=== PATIENT | male | born 1965 | race Caucasian/White ===

== ENCOUNTER → 2020-11-18 13:22 | Outpatient (BNVA) | payer MEDICARE, OTHER, SELFPAY | PROVIDERS: PCP Internal Medicine; Visit Provider Internal Medicine | DX: I48.92 Unspecified atrial flutter (principal); I10 Essential (primary) hypertension; I36.1 Nonrheumatic tricuspid (valve) insufficiency; M79.89 Other specified soft tissue disorders; G47.33 Obstructive sleep apnea (adult) (pediatric); Z79.899 Other long term (current) drug therapy; Z99.89 Dependence on other enabling machines and devices | CPT/HCPCS: 93005; 99212 ==

== ENCOUNTER → 2021-10-18 15:01 | Outpatient (REF) | payer MEDICARE, MEDICAID, SELFPAY ==
--- NOTE | 2021-10-18 15:05 | CA_ITS ---
Transthoracic Echocardiogram Patient (Last, First, Middle): Demetrius Gandhi, Gender: Male Date of : 1965 Age: 56 Procedure Date: 10/18/2021 Procedure Type: Transthoracic Echocardiogram Location: OP Height: 180.34 cm Weight: 149.69 kg BSA: 2.61 m2 Heart Rate: bpm BP: 132 / 65 mmHg Program Associate: JONATHAN Referring MD: Domingo Rico MD Block Splitter Operator: Scotty Rincon MD Symptoms: I36.1 - Nonrheumatic tricuspid (valve) insufficiency Study Quality: Fair ECG Rhythm: Sinus Conclusions: - 1. Normal LV systolic function with impaired relaxation filling pattern 2. Mild tricuspid regurgitation 3. Mildly elevated right ventricular systolic pressure 4. No gross pericardial effusion Findings Left Ventricle Normal left ventricular size, thickness, and systolic function. The visually estimated ejection fraction is between 55-60%. Spectral Doppler is indicative of an impaired relaxation filling pattern. E/E prime ratio is between 8 and 15 consistent with indeterminate filling pressures. Right Ventricle Normal right ventricular cavity size and systolic function. Atria The left atrium is mildly dilated. Interatrial shunt cannot be excluded. The right atrium was not well visualized. Aortic Valve The aortic valve structure and function is likely normal. There is no aortic valve stenosis. There is no aortic valve regurgitation. Mitral Valve Normal mitral valve structure and function. There is trace mitral valve regurgitation. There is no mitral valve stenosis. Pulmonic Valve The pulmonic valve was not well visualized. Tricuspid Valve Likely normal tricuspid valve structure and function. There is mild tricuspid valve regurgitation. The right ventricular systolic pressure is 43 mmHg. Mild pulmonary hypertension is present. Great Vessels All visible segments of the aorta are normal in size. The pulmonary artery was not well visualized. Venous The inferior vena cava is normal in size. Pericardium/Pleural There is no evidence of pericardial effusion. Prior Study Comparison Changes noted compared to prior study dated: 08/19/2019. RV systolic pressure is mildly elevated Measurements 2D Linear Measurements IVSd: 1.01 0.6-0.9/0.6-1.0 cm LVIDd: 5.74 3.9-5.3/4.2-5.9 cm LVIDd Index: 2.20 2.4-3.2/2.2-3.1 cm/m2 LVIDs: 3.95 2.0-3.6 cm LVPWd: 1.06 0.7-1.1 cm Ao Root: 3.90 2.1-3.5 cm LA Diam: 4.70 2.7-3.8/3.0-4.0 cm LAIDs Index: 1.80 1.5-2.3 cm/m2 LV Mass: 298.75 67-162/88-224 g LV Mass Index: 114.46 43-95/49-115 g/m2 LVOT Diam: 2.20 3.0+(-)1.3 cm 2D Systolic Function EF 4C: 58.70 >55% EF 2C: 59.10 >55% EF BiP: 57.90 >55% Mitral Valve MV Pk E: 1.00 MV PK A: 1.00 MV Decel Time: 248.00 E/A: 1.00 E'Lateral: 12.40 E'Medial: 7.29 E/E' Med: 13.70 E/E' Lat: 8.00 PHT: 73.00 MVA PHT: 3.01 Decel [place]: 4.03 Aortic Valve AoV Pk Pierre: 1.74 AoV Mn Pierre: 1.26 AoV VTI: 0.41 AoV Pk Grad: 12.00 Aov Mn Grad: 7.00 NIKITA Cont.VTI: 2.75 LVOT LVOT Pk Pierre: 1.17 LVOT Mn Pierre: 0.81 LVOT VTI: 0.30 LVOT Pk Grad: 5.00 LVOT Mn Grad: 3.00 LVOT Diam: 2.20 LVOT Area: 3.80 Diastolic Function MV Pk E: 1.00 MV Pk A: 1.00 E/A: 1.00 E'Medial: 7.29 E/E' Med: 13.70 E' Laterial: 12.40 E/E' Lat: 8.00 Right Ventricle TAPSE (mm): 30.00 TVS' Pierre: 15.00 Tricuspid Valve TR Pk Pierre: 3.15 TR Pk Grad: 40.00 RA Press: 3.00 RVSP: 43.00 Great Vessels Aorta Ao Root-2D: 3.90 2.0-3.7 cm Ao Asc: 3.40 2.1-3.4 cm Ao Arch: 3.40 Updated in Other Vendor System with Status of Final Scotty Rincon MD electronically signed on 10/19/2021 12:15:52 PM with status of Final
== END ==
LOC: HO.CARD 15:01
PROVIDERS: Visit Provider Internal Medicine
DX: I36.1 Nonrheumatic tricuspid (valve) insufficiency (principal)
CPT/HCPCS: 93306

== ENCOUNTER → 2021-11-21 13:25 | Outpatient (BNVA) | payer MEDICARE, MEDICAID, SELFPAY | PROVIDERS: PCP Internal Medicine; Referring Provider Internal Medicine; Visit Provider Internal Medicine | DX: I48.92 Unspecified atrial flutter (principal); I36.1 Nonrheumatic tricuspid (valve) insufficiency; I27.20 Pulmonary hypertension, unspecified; I10 Essential (primary) hypertension; E66.01 Morbid (severe) obesity due to excess calories; M79.89 Other specified soft tissue disorders; G47.33 Obstructive sleep apnea (adult) (pediatric); Z99.89 Dependence on other enabling machines and devices; Z68.42 Body mass index [BMI] 45.0-49.9, adult | CPT/HCPCS: 93005; 99212 ==

== ENCOUNTER → 2022-11-20 11:15 | Outpatient (BNVA) | payer MEDICARE, SELFPAY | PROVIDERS: PCP Internal Medicine; Referring Provider Internal Medicine; Visit Provider Internal Medicine | DX: I48.92 Unspecified atrial flutter (principal); I10 Essential (primary) hypertension; I27.20 Pulmonary hypertension, unspecified; G47.33 Obstructive sleep apnea (adult) (pediatric); M79.89 Other specified soft tissue disorders; E66.01 Morbid (severe) obesity due to excess calories; Z68.42 Body mass index [BMI] 45.0-49.9, adult; Z79.899 Other long term (current) drug therapy; Z99.89 Dependence on other enabling machines and devices | CPT/HCPCS: 93005; 99212 ==

== ENCOUNTER 2024-02-11 13:23 | Outpatient (AMB) | payer MEDICARE, SELFPAY ==
--- NOTE | 2024-02-11 13:25 | A.OFFVIS_ITS ---
Vital Signs 02/11/24 13:26 Height 5 ft 11 in Weight 337 lb 4.916 oz BMI 47.0 BP 150/70 H Blood Pressure Location Lt brachial Position Sitting Pulse 97 Pulse Source Monitor Pulse Oximetry (%) 98 Oxygen Delivery Method Room Air Intake Visit Reasons: hip surgery 03/07 Allergies No Known Allergies [No Known Allergies*] Allergy (Verified 11/20/22 11:22) Medication List - Last Reconciled 02/11/24 by Domingo Rico MD amlodipine 10 mg PO DAILY baclofen 10 mg PO BID furosemide 20 mg PO DAILY gabapentin 300 mg PO multivitamin 1 tab PO DAILY omeprazole 20 mg PO DAILY oxycodone 5 mg PO TID pravastatin 40 mg PO DAILY HPI Comments Details: Demetrius returns for follow-up regarding atrial flutter. Due to recurrent episodes of flutter, he had atrial flutter ablation. He has been very stable in that regard. No recurrences. Otherwise, he plans to go for hip surgery in the near future. He does not have any clear-cut cardiac symptoms but he has not moving much either because of hip pains. Comes with a walker. In the past, he was on a significant dose of beta-blockers, but he states that he was admitted for medical issues when the last year and that time it was stopped due to low blood pressure. However, blood pressure is again high. [facility] Medical History (Updated 02/11/24 @ 13:57 by Domingo Rico MD) JUANJO on CPAP Tricuspid valve regurgitation, nonrheumatic Essential hypertension Paroxysmal atrial flutter Surgical History History of cardiac radiofrequency ablation (~09/17/17) Family History Father HTN (hypertension) Mother Heart disease Social History (Updated 11/21/21 @ 13:35 by DASHAWN Garcia) Patient Tobacco Use Status: Former Tobacco user Quit Date: 20 yrs ago Review of Systems Const Denies weakness ENT Denies dizziness Card Denies chest pain, Denies chest pain with activity, Denies syncope, Denies rapid heart rate, Denies pedal edema, Denies edema, Denies leg edema, Denies lightheadedness, Denies palpitations, Denies dyspnea, Denies dyspnea on exertion and Denies orthopnea Resp Denies cough, Denies dyspnea and Denies dyspnea on exertion GI Denies hematochezia and Denies change in stool character Musc Denies abnormal gait, Denies muscle cramps, Denies muscle weakness, Denies numbness, Denies radiating pain into limb and Denies tingling Neuro Denies abnormal gait, Denies dizziness, Denies syncope, Denies numbness, Denies tingling and Denies weakness Endo Denies palpitations Physical Exam Vital Signs: Last Vital Signs Pulse 97 02/11/24 13:26 BP 150/70 H 02/11/24 13:26 Pulse Ox 98 02/11/24 13:26 Oxygen Delivery Method Room Air 02/11/24 13:26 BMI result Body Mass Index 47.0 Const General: comfortable and no acute distress Orientation/consciousness: patient oriented x3 HEENT Other: Unremarkable Head: Yes normal to inspection Neck Neck: Yes normal visual inspection Chest Chest palpation & inspection: normal inspection of the chest Resp Auscultation: clear to auscultation bilaterally Cardio Palpation: normal PMI Heart sounds: S1 normal heart sound present, S2 normal heart sound present, no gallops, no murmurs and no rubs GI Palpation (GI): Soft to palpation Back/Spine/Pelvis Other: unremarkable Skin General skin exam: no rashes or lesions noted Neuro General: patient oriented x3 Extrem General: Yes normal to inspection Psych Mental Status: mental status grossly normal Office Procedures EKG Details: EKG with sinus rhythm at 97/Min; can not exclude old inferior infarct; nonspecific changes in the anterolateral leads; [place] [address]-[id number], Complete Assessment & Plan Assessment & Plan (1) Preoperative cardiovascular examination: Code(s): Z01.810 - Encounter for preprocedural cardiovascular examination Category: Medical Plan: Some inferior changes in the EKG but could also be nonspecific. Recommend echocardiogram and stress test. Unlikely to exercise on treadmill and hence get pharmacological stress test with Lexiscan. (2) Paroxysmal atrial flutter: Code(s): I48.92 - Unspecified atrial flutter Category: Medical Plan: Status post ablation several years ago. Stable. Resume beta-blockers. (3) Essential hypertension: Code(s): I10 - Essential (primary) hypertension Category: Medical Plan: On amlodipine. In the past, was also on lisinopril but not anymore. Otherwise, was on metoprolol succinate ER 200 mg daily per our records but again not taking anymore. We can resume beta-blockers, probably smaller dose for now. (4) JUANJO on CPAP: Code(s): G47.33 - Obstructive sleep apnea (adult) (pediatric); Z99.89 - Dependence on other enabling machines and devices Category: Medical Plan: Continue regular CPAP. Orders: Orders NM cardiolite stress test Today R07.2 - Precordial pain CA echo transthoracic complete Today I25.10 - Atherosclerotic heart disease of [place] coronary artery without angina pectoris CA lexiscan stress w miley Today I20.9 - Angina pectoris, unspecified Medications: New metoprolol succinate ER (Toprol XL) 100 mg PO DAILY 90 tabs 3RF Coding Level of Care Code Est Pt Level 4 (05869) Diagnoses Preoperative cardiovascular examination Z01.810 Paroxysmal atrial flutter I48.92 Essential hypertension I10 JUANJO on CPAP G47.33; Z99.89 CPT Codes EKG - CPT: 77010-[id number], Complete ([id number])
[2024-02-11 13:26] VITALS: BP 150/70; PULSE 97; O2SAT 98; BMI 47.0
== END 2024-02-11 14:02 | disposition home or self-care (01) ==
PROVIDERS: PCP Internal Medicine; Visit Provider Internal Medicine
DX: Z01.810 Encounter for preprocedural cardiovascular examination (principal); I48.92 Unspecified atrial flutter; I10 Essential (primary) hypertension; G47.33 Obstructive sleep apnea (adult) (pediatric); Z99.89 Dependence on other enabling machines and devices
CPT/HCPCS: 93010; 99214

== ENCOUNTER → 2024-02-11 13:23 | Outpatient (BNVA) | payer MEDICARE, SELFPAY | PROVIDERS: PCP Internal Medicine; Visit Provider Internal Medicine | DX: Z01.810 Encounter for preprocedural cardiovascular examination (principal); I10 Essential (primary) hypertension; G47.33 Obstructive sleep apnea (adult) (pediatric); R07.2 Precordial pain; I25.119 Atherosclerotic heart disease of native coronary artery with unspecified angina pectoris; I48.92 Unspecified atrial flutter; Z99.89 Dependence on other enabling machines and devices | CPT/HCPCS: 93005; 99212 ==

== ENCOUNTER → 2024-04-07 08:56 | Outpatient (REF) | payer MEDICARE, SELFPAY ==
--- NOTE | ~2024-04-07 | NM_ITS ---
Lexiscan Myocardial perfusion study Indication: Preoperative cardiovascular evaluation Technique: The patient was brought in for a Lexiscan perfusion study on 04/07/2024 and was injected 0.4 mg of Lexiscan intravenously. Within a minute of this injection 45 mCi of sestamibi was given intravenously. Images were obtained using the SPECT gamma camera interlaced with the gating device. Images were obtained in supine position. Resting perfusion study was performed on 04/08/2024. Patient was administered 45 mCi of sestamibi intravenously at rest. Images were then obtained in supine position. Images were processed with the software and compared side to side in short axis, horizontal long axis and vertical long axis views. Total DLP 176mGy-cm. Findings: Raw acquisition reviewed. The stress perfusion study showed diminished tracer uptake along the inferior wall. With CT attenuation correction, there is improvement suggestive of possibly diaphragmatic attenuation artifact. The gated study shows normal LV systolic function with calculated LVEF of 58%. LV cavity is normal in size. The gated study shows somewhat diminished inferior wall contractility. Resting study shows diminished tracer uptake along the inferior wall. There is again improvement with CT attenuation correction suggestive of components of possibly diaphragmatic attenuation artifact. Gating at rest reveals reduced inferior wall contractility with ejection fraction at 53%. The findings are consistent with fixed inferior wall perfusion defect which could indicate a prior infarct. Superimposed diaphragmatic attenuation artifact. NH/NH cardiolite stress test Impression: 1. Myocardial perfusion imaging study shows possible non-transmural infarct inferior wall. Cannot exclude components of diaphragmatic attenuation artifact. 2. Gated LVEF is 58% during stress and 53% during rest. 3. Transient ischemic dilatation not present. EKG component of the test reported separately.
--- NOTE | 2024-04-07 09:00 | CA_ITS ---
Acquisition Time: 2024-04-07 10:01:45 Total Exercise Time: 00:02:00 Test Indications: Abnormal ECG Medications: AMLODIPINE BACLOFEN FUROSEMIDE GABAPENTIN OMEPRAZOLE PRAVASTATIN OXYCODONE Protocol: LEXISCAN Max HR: 095 BPM 58% of Pred: 163 BPM Max BP: 152/066 mmHG Max Work Load: 1.0 METS Pharmaoclogical stress test with Lexiscan injection while sitting and kicking his leg, without anginal symptoms, with isolated PVCs, with normotensive response to injection, with nondiagnoisitic EKGs. Nuclear images pending. Test reviewed with Dr. Rincon Referred By: Domingo Rico Overread By: Cris Cloud
--- NOTE | 2024-04-07 09:00 | CA_ITS ---
Transthoracic Echocardiogram Patient (Last, First, Middle): Demetrius Gandhi, Gender: Male Date of : 1965 Age: 59 Procedure Date: 04/07/2024 Procedure Type: Transthoracic Echocardiogram Location: OP Height: 180.34 cm Weight: 146.97 kg BSA: 2.59 m2 Heart Rate: bpm BP: 144 / 70 mmHg Auto Hauler: JONATHAN Referring MD: Domingo Rico MD Radiology Receptionist: Scotty Rincon MD Symptoms: I25.10 - Atherosclerotic heart disease of [place] coronary artery without... Study Quality: Fair ECG Rhythm: Sinus Conclusions: - 1. Normal LV ejection fraction of 55-60% with impaired relaxation filling pattern 2. Normal cardiac valvular Doppler 3. Moderately elevated right ventricular systolic pressure 4. Upper limits of normal ascending aortic size 5. No pericardial effusion Findings Left Ventricle Normal left ventricular size, thickness, and systolic function. The visually estimated ejection fraction is between 55-60%. Spectral Doppler is indicative of an impaired relaxation filling pattern. E/E prime ratio is between 8 and 15 consistent with indeterminate filling pressures. Wall Motion Rest Echo Findings The basal inferior and mid inferior segments are hypokinetic. All other scored wall segments showed normal motion. Right Ventricle Normal right ventricular cavity size and systolic function. Atria The left atrium is moderately dilated. There is no evidence of interatrial shunt. The right atrium is normal in size. Aortic Valve Normal aortic valve structure and function. There is no aortic valve stenosis. There is no aortic valve regurgitation. Mitral Valve Normal mitral valve structure and function. There is trace mitral valve regurgitation. There is no mitral valve stenosis. Pulmonic Valve The pulmonic valve is likely normal. There is trace pulmonic valve regurgitation. Tricuspid Valve Normal right atrial pressure. Moderate pulmonary hypertension is present. Great Vessels The pulmonary artery was not well visualized. There is no dilatation of the ascending aorta measuring 3.50 cm. Venous The inferior vena cava is normal in size and collapses greater than 50% with inspiration. Pericardium/Pleural There is no evidence of pericardial effusion. Measurements 2D Linear Measurements IVSd: 1.02 0.6-0.9/0.6-1.0 cm LVIDd: 5.85 3.9-5.3/4.2-5.9 cm LVIDd Index: 2.26 2.4-3.2/2.2-3.1 cm/m2 LVIDs: 4.02 2.0-3.6 cm LVPWd: 1.08 0.7-1.1 cm LA Diam: 4.90 2.7-3.8/3.0-4.0 cm LAIDs Index: 1.89 1.5-2.3 cm/m2 LV Mass: 314.35 67-162/88-224 g LV Mass Index: 121.37 43-95/49-115 g/m2 LVOT Diam: 2.20 3.0+(-)1.3 cm 2D Systolic Function EF 4C: 58.60 >55% EF 2C: 55.50 >55% EF BiP: 57.00 >55% Mitral Valve MV VTI: 0.52 MV Pk Pierre: 1.53 MV Mn Pierre: 1.03 MV Pk Grad: 9.00 MV Mn Grad: 5.00 MV Pk E: 1.08 MV PK A: 1.36 MV Decel Time: 211.00 E/A: 0.80 E'Lateral: 10.90 E'Medial: 7.94 E/E' Med: 13.60 E/E' Lat: 9.90 PHT: 62.00 MVA PHT: 3.55 MVA Continuity: 2.91 Decel [place]: 5.11 Aortic Valve AoV Pk Pierre: 1.99 AoV Mn Pierre: 1.41 AoV VTI: 0.48 AoV Pk Grad: 16.00 Aov Mn Grad: 9.00 NIKITA Cont.VTI: 3.14 LVOT LVOT Pk Pierre: 1.66 LVOT Mn Pierre: 1.18 LVOT VTI: 0.40 LVOT Pk Grad: 11.00 LVOT Mn Grad: 6.00 LVOT Diam: 2.20 LVOT Area: 3.80 Diastolic Function MV Pk E: 1.08 MV Pk A: 1.36 E/A: 0.80 E'Medial: 7.94 E/E' Med: 13.60 E' Laterial: 10.90 E/E' Lat: 9.90 Right Ventricle TAPSE (mm): 36.00 TVS' Pierre: 19.60 Tricuspid Valve TR Pk Pierre: 3.37 TR Pk Grad: 45.00 RA Press: 3.00 RVSP: 48.00 Great Vessels Aorta Sinus of Valsalva: 3.70 2.0-3.[address] [place]: 3.01 1.7-3.4 cm Ao Asc: 3.50 2.1-3.4 cm Updated in Other Vendor System with Status of Final Scotty Rincon MD electronically signed on 04/08/2024 9:02:24 AM with status of Final
== END ==
LOC: HO.CARD 08:56
PROVIDERS: PCP Internal Medicine; Visit Provider Internal Medicine
DX: R07.2 Precordial pain (principal); I25.119 Atherosclerotic heart disease of native coronary artery with unspecified angina pectoris
CPT/HCPCS: 78452; 93017; 93306; A9500; J0280; J2785

== ENCOUNTER → 2024-04-07 09:00 | Outpatient (BNV) | payer MEDICARE, SELFPAY | PROVIDERS: PCP Internal Medicine; Visit Provider Nurse Practitioner | DX: Z01.810 Encounter for preprocedural cardiovascular examination (principal); I49.3 Ventricular premature depolarization; I25.10 Atherosclerotic heart disease of native coronary artery without angina pectoris | CPT/HCPCS: 78452; 93016; 93018; 93320; 93325; 93350 ==

== ENCOUNTER → 2024-04-29 23:59 | Outpatient (BNV) | payer MEDICARE, SELFPAY | PROVIDERS: PCP Internal Medicine; Visit Provider Internal Medicine Cardiovascular Disease | DX: R93.1 Abnormal findings on diagnostic imaging of heart and coronary circulation (principal) | CPT/HCPCS: 93458; 99152 ==

== ENCOUNTER 2024-05-14 13:48 | Outpatient (AMB) | payer MEDICARE, SELFPAY ==
--- NOTE | 2024-05-14 13:56 | A.OFFVIS_ITS ---
Vital Signs 05/14/24 13:57 Height 5 ft 11 in BMI Reason not done Patient refused/unable BP 130/58 L Blood Pressure Location Lt brachial Position Sitting Pulse 55 Pulse Source Pulse Oximeter Intake Visit Reasons: Follow up post cardiac cath Allergies No Known Allergies [No Known Allergies*] Allergy (Verified 11/20/22 11:22) Medication List - Last Reconciled 05/14/24 by Domingo Rico MD amlodipine 10 mg PO DAILY aspirin (Adult Aspirin Regimen) 81 mg PO DAILY furosemide 20 mg PO DAILY gabapentin 300 mg PO metoprolol succinate ER (Toprol XL) 100 mg PO DAILY multivitamin 1 tab PO DAILY omeprazole 20 mg PO DAILY oxycodone 5 mg PO TID pravastatin 40 mg PO DAILY HPI Comments Details: Demetrius returns for follow-up. History of atrial flutter for which she underwent ablation in the past. Has been stable no recent issues. He also requires hip surgery and needs preoperative evaluation as well. Overall, from cardiac standpoint he is doing fine. No specific complaints. He does take intermittent Lasix for leg swelling but otherwise doing okay. He underwent an echocardiogram, stress test, followed by cardiac catheterization. He comes in a wheelchair. [facility] Medical History (Updated 04/09/24 @ 09:05 by Orville Nicole RN) Abnormal cardiovascular stress test JUANJO on CPAP Tricuspid valve regurgitation, nonrheumatic Essential hypertension Paroxysmal atrial flutter Surgical History History of cardiac radiofrequency ablation (~09/17/17) Family History Father HTN (hypertension) Mother Heart disease Social History (Updated 11/21/21 @ 13:35 by DASHAWN Garcia) Patient Tobacco Use Status: Former Tobacco user Review of Systems Const Denies weakness ENT Denies dizziness Card Denies chest pain, Denies chest pain with activity, Denies syncope, Denies rapid heart rate, Denies pedal edema, Denies edema, Denies leg edema, Denies li ghtheadedness, Denies palpitations, Reports dyspnea, Denies dyspnea on exertion and Denies orthopnea Resp Denies cough, Reports dyspnea and Denies dyspnea on exertion GI Denies hematochezia and Denies change in stool character Musc Denies abnormal gait, Denies muscle cramps, Denies muscle weakness, Denies numbness, Denies radiating pain into limb and Denies tingling Neuro Denies abnormal gait, Denies dizziness, Denies syncope, Denies numbness, Denies tingling and Denies weakness Endo Denies palpitations Physical Exam Vital Signs: Last Vital Signs Pulse 55 05/14/24 13:57 BP 130/58 L 05/14/24 13:57 Const General: comfortable and no acute distress Orientation/consciousness: patient oriented x3 HEENT Other: Unremarkable Head: Yes normal to inspection Neck Neck: Yes normal visual inspection Chest Chest palpation & inspection: normal inspection of the chest Resp Auscultation: clear to auscultation bilaterally Cardio Palpation: normal PMI Heart sounds: S1 normal heart sound present, S2 normal heart sound present, no gallops, no murmurs and no rubs GI Palpation (GI): Soft to palpation Back/Spine/Pelvis Other: unremarkable Skin General skin exam: no rashes or lesions noted Neuro General: patient oriented x3 Extrem Other: 1-2+ swelling General: Yes normal to inspection Psych Mental Status: mental status grossly normal Assessment & Plan Assessment & Plan (1) Preoperative cardiovascular examination: Code(s): Z01.810 - Encounter for preprocedural cardiovascular examination Category: Medical Plan: Cardiac testing reviewed. In the echocardiogram, LVEF 55-60% and basal to mid inferior hypokinesis. Moderate pulmonary hypertension. Myocardial perfusion imaging study with possible nontransmural infarct inferior wall versus diaphragmatic attenuation artifact. Cardiac catheterization with normal coronaries. Hence noninvasive testing findings can be all false positive. LVEDP was elevated at 30 mm Hg. Hence advised to take Lasix regularly. Low cardiac risk for the proposed hip surgery. May proceed as planned. (2) Paroxysmal atrial flutter: Code(s): I48.92 - Unspecified atrial flutter Category: Medical Plan: Status post ablation several years ago. Stable. Continue beta-blockers. (3) Essential hypertension: Code(s): I10 - Essential (primary) hypertension Category: Medical Plan: On amlodipine. In the past, was also on lisinopril but not anymore. (4) JUANJO on CPAP: Code(s): G47.33 - Obstructive sleep apnea (adult) (pediatric); Z99.89 - Dependence on other enabling machines and devices Category: Medical Plan: Continue regular CPAP. Plan Otherwise, on review of [place] [facility] 8.5. Advised him to review that with his own PCP. May stop aspirin. Medications: Discontinued aspirin (Adult Aspirin Regimen) Discontinued Reason: Doctor's Order 81 mg PO DAILY 90 tabs 3RF Coding Level of Care Code Est Pt Level 4 (92938) Diagnoses Preoperative cardiovascular examination Z01.810 Paroxysmal atrial flutter I48.92 Essential hypertension I10 JUANJO on CPAP G47.33; Z99.89
[2024-05-14 13:57] VITALS: BP 130/58; PULSE 55
== END 2024-05-14 14:28 | disposition home or self-care (01) ==
PROVIDERS: PCP Internal Medicine; Visit Provider Internal Medicine
DX: Z01.810 Encounter for preprocedural cardiovascular examination (principal); I48.92 Unspecified atrial flutter; I10 Essential (primary) hypertension; G47.33 Obstructive sleep apnea (adult) (pediatric); Z99.89 Dependence on other enabling machines and devices
CPT/HCPCS: 99214

== ENCOUNTER → 2024-05-14 13:48 | Outpatient (BNVA) | payer MEDICARE, SELFPAY | PROVIDERS: PCP Internal Medicine; Visit Provider Internal Medicine | DX: Z01.810 Encounter for preprocedural cardiovascular examination (principal); I48.92 Unspecified atrial flutter; I10 Essential (primary) hypertension; G47.33 Obstructive sleep apnea (adult) (pediatric); Z98.890 Other specified postprocedural states; Z99.89 Dependence on other enabling machines and devices | CPT/HCPCS: 99212 ==